=== PATIENT | female | born 1975 | race Caucasian/White ===

== ENCOUNTER → 2024-02-14 06:22 | Day surgery (SDC) | payer OTHER, SELFPAY | LOC: GI 06:22 | PROVIDERS: ATTENDING PHYSICIAN Internal Medicine Gastroenterology | DX: Z12.11 Encounter for screening for malignant neoplasm of colon (principal); K64.8 Other hemorrhoids; K57.30 Diverticulosis of large intestine without perforation or abscess without bleeding | CPT/HCPCS: G0121 ==

== ENCOUNTER → 2024-05-27 14:32 | Outpatient (REF) | payer OTHER, SELFPAY | LOC: HWRAD 14:32 | PROVIDERS: ATTENDING PHYSICIAN Family Medicine; FAMILY PHYSICIAN Family Medicine | DX: M54.2 Cervicalgia (principal); R20.2 Paresthesia of skin; R20.0 Anesthesia of skin | CPT/HCPCS: 72125 ==

== ENCOUNTER → 2024-06-11 12:50 | Outpatient (REF) | payer OTHER, SELFPAY | LOC: EMG 12:50 | PROVIDERS: ATTENDING PHYSICIAN Family Medicine; FAMILY PHYSICIAN Family Medicine | DX: M54.2 Cervicalgia (principal); M79.602 Pain in left arm | CPT/HCPCS: 95886; 95910 ==

== ENCOUNTER → 2024-06-21 07:11 | Outpatient (REF) | payer OTHER, SELFPAY | LOC: MRI 07:11 | PROVIDERS: ATTENDING PHYSICIAN Family Medicine; FAMILY PHYSICIAN Family Medicine | DX: M54.2 Cervicalgia (principal); M79.602 Pain in left arm | CPT/HCPCS: 72146 ==